=== PATIENT | female | born 1975 | race Asian ===

== ENCOUNTER 2016-11-15 00:26 | Emergency (ER) | payer BC ==
[~2016-11-15] VITALS: Ht 157.5 cm; Wt 103.9 kg
[~2016-11-15 00:26] MED LIST: BCPILLS PO; GABA-112 PO
[2016-11-15 00:27] VITALS: TEMP 36.7; Ht 157.5 cm; Wt 103.9 kg
[2016-11-15] MEDS ORDERED: EpINEphrine INJ 1MG/ML AMP 1 MG/ML AMP ONE (00:37)
[2016-11-15] MEDS ORDERED: DiphenhydrAMINE HCL 50 MG/ML VIAL IV STA (00:38)
[2016-11-15] MEDS ORDERED: FAMOTIDINE 20MG/102 ML D5W IV STA (00:38)
[2016-11-15] MEDS ORDERED: SODIUM CHLORIDE 0.9% 1000ML 1,000 ML IV STA (00:38)
[2016-11-15] MEDS ORDERED: SODIUM CHLORIDE 0.9% 500ML 500 ML IV STA (00:38)
[2016-11-15] MEDS ORDERED: METHYLPREDNISOLONE 125 MG VIAL IV STA (00:38)
--- NOTE | 2016-11-15 00:46 | EMERGENCY ROOM VISIT NOTE ---
History Report prepared by Eduardoibvandana: Dahiana Arguello Under the Supervision of: Dr. Kaylie La D.O. 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 Denies difficulty breathing at present time. History of Present Illness The patient is a 41 year old female who presents to the Emergency Room with complaints of a persistent allergic reaction that began thirty minutes prior to arrival. She currently rates her discomfort as a 3/10 in severity. The patient states that she just started taking Gabapentin three days ago for pain management. She states that today she noticed congestion so she started taking Mucinex DM. The patient denies ever taking Mucinex DM in the past, but states that she has taken Mucinex D in the past. She states that thirty minutes ago she started noticing facial swelling and hives. The patient denies any difficulty breathing at this time. She denies any chance of . Source of History: patient Onset: thirty minutes prior to arrival Position: other (global) Symptom Intensity: 3/10 Quality: other (allergic reaction) Timing: other (persistent) Note: Associated Symptoms: facial swelling, hives, congestion Review of Systems See HPI for pertinent positives & negatives. A total of 10 systems reviewed and were otherwise negative. Past Medical & Surgical Medical Problems: (1) Cervical disc herniation Family History Diabetes mellitus Heart disease Hypertension Kidney disease Social History Smoking Status: Never Smoker Alcohol Use: none Marital Status: single Occupation Status: employed Current/Historical Medications Scheduled B-Complex Vitamins (Vitamin B Complex), 1 TAB PO DAILY Control Pills ( Control Pills), 1 TAB PO DAILY Cholecalciferol (Vitamin D3), 2,000 UNIT PO DAILY Gabapentin (Neurontin), 200 MG PO TID Multivitamin (Multivitamin), 1 TAB PO DAILY Scheduled PRN Acetaminophen Tab (Tylenol), 325 MG PO Q4 PRN for Pain or Fever Pseudoephedrine-Guaifenesin (Mucinex D), 1 TAB PO BID PRN for Nasal Congestion Allergies Coded Allergies: No Known Allergies (Unverified , 11/15/16) Physical Exam Vital Signs Date Time Temp Pulse Resp B/P Pulse Ox O2 Delivery O2 Flow Rate FiO2 11/15/16 05:33 100 16 145/95 96 11/15/16 04:20 105 22 147/100 95 Room Air 11/15/16 04:10 101 11/15/16 02:41 115 15 144/96 97 Room Air 11/15/16 01:39 108 23 163/104 95 Room Air 11/15/16 00:48 113 11/15/16 00:45 119 22 161/109 97 Room Air 11/15/16 00:27 94 Room Air 11/15/16 00:27 36.7 122 18 162/114 94 Room Air Physical Exam HEENT: Edema to ears and face. Head - normocephalic and atraumatic Pupils are equal, round, and reactive to light. Extraocular eye muscles are intact, and sclera are anicteric. Nose - moist nasal mucosa without discharge. Mouth - moist buccal mucosa. Uvular edema. Tongue appears normal in size. Oropharynx is nonerythematous and there is no tonsillar exudate noted. Neck: No auscultated stridor. Supple; no JVD, nuchal rigidity, cervical lymphadenopathy, or auscultated bruits. Heart: Tachycardic rate and regular rhythm. There is a normal S1 and S2 with no murmurs, clicks, or gallops appreciated. Lungs: Clear to auscultation bilaterally with no wheezes, rales, or rhonchi. Abdomen: Soft, completely nontender, nondistended, with good bowel sounds. There are no palpable pulsatile masses or hepatosplenomegaly. There is no guarding, rigidity, or rebound noted. Extremities: No evidence of cyanosis, clubbing, or edema. There are easily palpable peripheral pulses. Skin: Diffuse urticaria and erythema. Medical Decision & Procedures Medications Administered Medications (Trade) Dose Ordered Sig/Megan Route Start Time Stop Time Status Last Admin Dose Admin Epinephrine HCl 1 mg 1 mg STK-MED ONCE .ROUTE 11/15/16 00:37 11/15/16 00:40 DC 11/15/16 00:37 0.3 MG Sodium Chloride 500 ml @ 999 mls/hr Q31M STAT IV 11/15/16 00:38 11/15/16 01:08 DC 11/15/16 01:31 999 MLS/HR Sodium Chloride (Nss 1000ml) 1,000 ml @ 250 mls/hr Q4H STAT IV 11/15/16 00:38 11/15/16 04:37 DC 11/15/16 04:08 250 MLS/HR Diphenhydramine HCl (Benadryl Inj) 50 mg NOW STAT IV 11/15/16 00:38 11/15/16 00:41 DC 11/15/16 01:30 50 MG Famotidine (Pepcid 20mg/100 ml) 20 mg ONE STAT IV 11/15/16 00:38 11/15/16 00:41 DC 11/15/16 01:30 20 MG Methylprednisolone Sodium Succinate (Solu-Medrol IV) 125 mg NOW STAT IV 11/15/16 00:38 11/15/16 00:41 DC 11/15/16 01:30 125 MG Diphenhydramine HCl (diphenhydrAMINE 25MG HOME PACK) 1 homepack STK-MED ONCE .ROUTE 11/15/16 05:19 11/15/16 05:22 DC 11/15/16 05:26 1 HOMEPACK Procedure The patient was treated with 1 mg Epinephrine HCl IM; 125 mg Solu-Medrol IV, 20 mg Famotidine IV, Benadryl Inj 50 mg IV, Sodium Chloride 1000 ml @ 250 mls/hr IV , Sodium Chloride 500 ml @ 999 mls/hr IV. She was given a Diphenhydramine HCl 1 homepack. ED Course 0034: Past medical records reviewed. The patient was evaluated in room A10. A complete history and physical exam was performed. 0037: Ordered Epinephrine HCl 0.3mg IM 0038: An IV lock was initiated. Ordered Solu-Medrol IV 125 mg IV, Famotidine 20 mg IV, Benadryl Inj 50 mg IV, Sodium Chloride 1000 ml @ 250 mls/hr IV, Sodium Chloride 500 ml @ 999 mls/hr IV. 0106: I reevaluated the patient and she was less red and still very anxious and just had her IV started. 0155: I reevaluated the patient and she is feeling much better. Her uvula is less edematous and her erythema has subsided. 0338: I reevaluated the patient and she is sound asleep and hemodynamically stable. 0441: I revaluated the patient and she is resting comfortably. I discussed the exam findings with her and I discussed the treatment plan. She verbalized complete understanding and agreement. She is ready to go home. 0519: Ordered Diphenhydramine HCl 1 homepack .route. Medical Decision The patient is a 41 year old female who presents to the ED with allergic reaction. Differential diagnosis includes anaphylaxis, allergic reaction, urticaria, drug rash. The patient presents to the emergency department with a significant allergic reaction including swelling to the uvula, earlobes, and diffuse urticaria. The patient was in no respiratory distress and had no difficulty swallowing. This is believed to be secondary to medications. The patient denies any other oral intake or new foods She has never had allergy like this before. The patient had recently taking gabapentin and Mucinex DM. Have encouraged her to avoid those medications in the future. She can continue to use Benadryl for additional allergic symptoms. If she develops worsening symptoms, she should return to the emergency department immediately. She will follow up with pain management with regards to alternative medications for gabapentin. Impression Primary Impression: Allergic reaction Critical Care I have personally spent greater than 60 minutes of critical care time in the direct management of this patient. This includes bedside care, interpretation of diagnostic studies, and testing, discussion with consultants, patient, and family members, and other required patient management activities. This 60 minutes is in excess of all separately billable procedures. Scribe Attestation The scribe's documentation has been prepared under my direction and personally reviewed by me in its entirety. I confirm that the note above accurately reflects all work, treatment, procedures, and medical decision making performed by me. Departure Information Dispostion Home / Self-Care Referrals Suri Culp D.O. (PCP) Forms HOME CARE DOCUMENTATION FORM, IMPORTANT VISIT INFORMATION Patient Instructions ED Drug React Allergic, My [facility] Additional Instructions Rest You may continue to take benadryl - 50mg every 6 hours for continued rash. Stop the gabapentin and mucinex DM Follow up with pain management about meds
[2016-11-15] MEDS ORDERED: MULT-506 PO (01:56)
[2016-11-15] MEDS ORDERED: CHOL2000 PO (01:56)
[2016-11-15] MEDS ORDERED: B-CO1CAP17 PO (01:56)
[2016-11-15] MEDS ORDERED: B-COTAB18 PO (01:57)
[2016-11-15] MEDS ORDERED: ACET325T96 PO (01:58)
[2016-11-15] MEDS ORDERED: PSEU60TA80 PO (01:58)
[2016-11-15] MEDS ORDERED: BENADRYL HOME PACK 25 MG TAB ONE (05:19)
[2016-11-15 05:33] VITALS: BP 145/95; PULSE 100; O2SAT 96
== END 2016-11-15 05:34 | disposition home or self-care (01) ==
LOC: C.EDB 00:27 → C.EDA 05:34
DX: T43.8X5A Adverse effect of other psychotropic drugs, initial encounter (principal); X58.XXXA Exposure to other specified factors, initial encounter; Z83.3 Family history of diabetes mellitus; Z82.49 Family history of ischemic heart disease and other diseases of the circulatory system; Z84.1 Family history of disorders of kidney and ureter; Z79.3 Long term (current) use of hormonal contraceptives

== ENCOUNTER → 2017-04-05 | Outpatient (CLI) | payer BC ==
[~2017-04-05] MED LIST changes: +ACET325T96 PO; +B-COTAB18 PO; +CHOL2000 PO; +MULT-506 PO; +PRED50TA PO; +PSEU60TA80 PO
== END | disposition home or self-care (01) ==
LOC: C.RDSM 12:30
PROVIDERS: ATTEND Orthopaedic Surgery Sports Medicine
DX: R52 Pain, unspecified (principal)

== ENCOUNTER → 2017-04-13 | Outpatient (CLI) | payer BC ==
--- NOTE | 2017-04-13 12:18 | DIAGNOSTIC IMAGING REPORT ---
POST ARTHROGRAM MRI THE RIGHT SHOULDER CLINICAL HISTORY: Right shoulder pain and weakness status post neck surgery. COMPARISON STUDY: Conventional radiographic study dated 04/05/2017 FINDINGS: Imaging was performed the sagittal, coronal, and axial planes. The bicipital tendon appears normal. There are no areas of marrow edema to indicate occult fracture or bone bruise. There is a tiny subcortical cyst within the humeral head. There is no evidence of rotator cuff tear. No labral tears are visualized. There is no evidence of pathologic muscular atrophy IMPRESSION: 1. No evidence of rotator cuff tear 2. No evidence of bicipital tendon tear 3. No evidence of labral tear Electronically signed by: Allen Bond M.D. 04/13/2017 12:16 PM Dictated Date/Time: 04/13/2017 12:13 PM
--- NOTE | 2017-04-13 12:18 | Discharge Instructions ---
Discharge Instructions Procedure Procedure Date: Apr 13, 2017. Reason for visit: Shoulder Weakness. Discharge Discharge Date: Apr 13, 2017. Discharge Diagnosis: Right shoulder pain. Status post shoulder arthrogram for MRI. Instructions Activity Recommendations: No limitations Return to School/Work: no limitations Recommended Home Diet: No Limitations Allergies Coded Allergies: No Known Allergies (Unverified , 11/15/16) Mamadou Grissom Recommendations: Call your doctor if: * Temperature above 101 degrees * Pain not relieved by pain medicine ordered * There is increased drainage or redness from any incision * You have any unanswered questions or concerns. Your Doctors Instructions noted above were prepared by provider Aiden Noguera. Patient Signature Section: Patient Instructions Signature Page Stefanie Alarcon Patient (or Guardian) Signature/Date: I have read and understand the instructions given to me by my caregivers. Caregiver/RN/Doctor Signature/Date: The above-named patient and/or guardian has received patient instructions on this date. + Original Patient Signature Page (only) stays with chart. Please make copy for patient.
--- NOTE | 2017-04-13 12:18 | DIAGNOSTIC IMAGING REPORT ---
RIGHT INJECTION SHOULDER PRE MRI FLUOROSCOPY TIME: 32 seconds. 1 frontal spot fluoroscopic image was submitted. HISTORY: 41-year-old female presents with chronic right shoulder pain. PROCEDURE: After obtaining written informed consent, the patient was placed supine on the fluoroscopy table. A suitable site for needle insertion was marked using fluoroscopic guidance. The right shoulder was prepped and draped in the usual sterile fashion. 1% lidocaine was used for skin, subcutaneous and deep soft tissue anesthesia. Under intermittent fluoroscopic guidance, a 22 gauge 2.5 inch spinal needle was inserted into the right glenohumeral joint. A total of 14 cc of one-to-one mixture of dilute Magnevist (0.1 cc in 10 cc saline) and Optiray 300 were injected. The needle was then removed. There were no apparent complications. The patient was transported to for further imaging. IMPRESSION: Fluoroscopic-guided right shoulder arthrogram without immediate complication. Total injected volume was 14 cc. MR portion of the examination will be dictated separately. The above report was generated using voice recognition software. It may contain grammatical, syntax or spelling errors. Electronically signed by: Abraham Noguera M.D. 04/13/2017 12:16 PM Dictated Date/Time: 04/13/2017 12:15 PM
== END | disposition home or self-care (01) ==
LOC: C.MRIBC 10:46
PROVIDERS: ATTEND Orthopaedic Surgery Sports Medicine
DX: M62.81 Muscle weakness (generalized) (principal); M25.511 Pain in right shoulder

== ENCOUNTER 2017-06-15 04:19 | Emergency (ER) | payer BC ==
[~2017-06-15 04:19] MED LIST changes: -PRED50TA PO
[2017-06-15] MEDS ORDERED: RANITIDINE HCL 50 MG/100 ML D5W IV STA (04:27)
[2017-06-15] MEDS ORDERED: DEXAMETHASONE SOD INJ 10 MG/ML VIAL IV ONE (04:30)
[2017-06-15 04:37] VITALS: TEMP 36.6; Ht 157.5 cm
[2017-06-15] MEDS ORDERED: EPINEPHRINE ADULT AUTO-INJECT 0.3 MG SYR IM STA (05:07)
--- NOTE | 2017-06-15 05:07 | EMERGENCY ROOM VISIT NOTE ---
History First contact with patient: 04:24 Chief Complaint: ALLERGIC REACTION Stated Complaint: SWELLING EYES,NOSE,HANDS,ALLERGIC REACTION Nursing Triage Summary: Pt reports eating something from [employer] last night. Pt woke up around midnight with rash, itching, and swelling to ears. History of Present Illness The patient is a 41 year old female who presents to the Emergency Room with complaints of allergic reaction for the past few hours. Patient states she woke up with itching and rash tonight. Patient states last night for dinner she had [place] food that was many hours ago. Patient denies chest pain, throat tightness, abdominal pain, vomiting, diarrhea. No facial swelling. Patient took Benadryl at 2:30 AM. She's had an allergic reaction similar to this in the past that was worse though. 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 No new foods soaps or detergents. Review of Systems See HPI for pertinent positives & negatives. A total of 10 systems reviewed and were otherwise negative. Past Medical/Surgical History Medical Problems: (1) Cervical disc herniation Family History Diabetes mellitus Heart disease Hypertension Kidney disease Social History Smoking Status: Never Smoker Alcohol Use: none Marital Status: single Occupation Status: employed Current/Historical Medications Scheduled B-Complex Vitamins (Vitamin B Complex), 1 TAB PO DAILY Control Pills ( Control Pills), 1 TAB PO DAILY Cholecalciferol (Vitamin D3), 2,000 UNIT PO DAILY Gabapentin (Neurontin), 200 MG PO TID Multivitamin (Multivitamin), 1 TAB PO DAILY Scheduled PRN Acetaminophen Tab (Tylenol), 325 MG PO Q4 PRN for Pain or Fever Pseudoephedrine-Guaifenesin (Mucinex D), 1 TAB PO BID PRN for Nasal Congestion Physical Exam Vital Signs Date Time Temp Pulse Resp B/P (MAP) Pulse Ox O2 Delivery O2 Flow Rate FiO2 06/15/17 04:41 100 06/15/17 04:37 36.6 90 20 179/111 98 Room Air 06/15/17 04:37 Room Air 06/15/17 04:37 Room Air Physical Exam VITALS: Vitals are noted on the nurse's note and reviewed by myself. Vital signs hypertensive GENERAL: Pleasant anxious-appearing female, in no acute distress, nondiaphoretic , well-developed well-nourished. SKIN: Diffuse erythematous blanchable dermatitis most consistent with allergic reaction The rest of the skin was without rashes, erythema, edema, or bruising. There is no tenting of the skin. Capillary reflex less than 2 seconds. HEAD: Normocephalic atraumatic. No facial edema EARS: External auditory canals clear, tympanic membranes pearly drummond without erythema or effusion bilaterally. EYES: Pupils equal round and reactive to light and accommodation. Conjunctivae without injection, sclerae without icterus. Extraocular movements intact. NOSE: Patent, turbinates without inflammation or discharge. MOUTH: Mucous membranes moist. Pharynx without erythema or exudate. Uvula midline. Airway patent. Tongue does not deviate. No airway compromise NECK: Supple without nuchal rigidity. No lymphadenopathy. No thyromegaly. Cervical spine is nontender. No JVD. HEART: Regular rate and rhythm without murmurs gallops or rubs. LUNGS: Clear to auscultation bilaterally without wheezes, rales or rhonchi. No dullness to percussion. No retractions or accessory muscle use. ABDOMEN: Positive bowel sounds x 4. Normal tympanic percussion. Soft, nontender, without masses or organomegaly. Otto sign negative. No guarding or rebound tenderness. MUSCULOSKELETAL: No muscle atrophy, erythema, or edema noted. NEURO: Patient was alert and oriented to person place and time. Normal sensation to light and sharp touch. No focal neurological deficits. Medical Decision & Procedures Medications Administered Medications (Trade) Dose Ordered Sig/Megan Route Start Time Stop Time Status Last Admin Dose Admin Dexamethasone Sodium Phosphate (Decadron Inj) 10 mg NOW ONCE IV 06/15/17 04:30 06/15/17 04:31 DC 06/15/17 04:42 10 MG Ranitidine HCl (zANTac IV) 50 mg NOW STAT IV 06/15/17 04:27 06/15/17 04:28 DC 06/15/17 04:42 50 MG ED Course Prior records/ancillary studies reviewed. Triage Nursing notes reviewed. The patient's history was concerning for possible allergic reaction. Differential diagnosis: Etiologies such as allergic reaction, anaphylaxis, urticaria, Sanford-Bacilio syndrome, toxic epidermal necrolysis, erythema multiforme, cellulitis, as well as others were entertained. Physical examination: As above. ER treatment provided: Continuous cardiac monitoring Zantac 50 mg IV Decadron 10 mg IV On reassessment the patient felt better. Diagnostic interpretation by me: Deferred It appears the patient had an allergic reaction. The above treatment did well to reverse the symptoms. After prolonged monitoring and frequent reassessments the patient did very well and symptoms resolved. The patient was counseled on the spectrum of this disease process and told to avoid potential triggers. I gave my usual and customary discussion regarding this issue. Patient was advised to follow-up with the veneer jointer operator and family care doctor. By the evaluation outlined above emergent etiologies such as recurring anaphylaxis, anaphylatic shock, airway compromise, Sanford-Bacilio syndrome, toxic epidermal necrolysis, erythema multiforme, infectious etiologies, as well as others were deemed relatively unlikely. The pt informed about the findings as listed above. All questions were answered and pleased with the treatment. Return instructions were outlined and the patient was discharged in stable condition. Outpatient prescription management: EpiPen prednisone Referral: The patient was referred back to primary care physician for follow-up in 2-3 days for a recheck of the current condition. or The patient was referred to Allergy/Immunology for further evaluation. Medical Decision As above Blood Pressure Screening Patient's blood pressure: Elevated blood pressure Blood pressure disposition: Elevated BP felt to be situational Impression Primary Impression: Allergic reaction Departure Information Dispostion Home / Self-Care Condition GOOD Referrals Suri Culp D.O. (PCP) Patient Instructions My [facility] Additional Instructions DO NOT drive, drink alcohol, operate machinery, or perform dangerous activities today. You were given medications in the ER that can affect your ability to safely function or operate a vehicle. Epi-Pen: Use one injection as instructed for severe allergic reactions associated with shortness of breath, difficulty breathing, or throat or tongue swelling. If you use this injection call 911 or proceed immediately to the nearest Emergency Room. Prednisone 50mg: Once daily until the prescription is finished. It is best to take this earlier in the day as some patients note occasional difficulty falling asleep when taken in the late evening. Diphenhydramine(Benadryl) 25mg: use 25 to 50 mg every six hours for swelling, itching, or hives. This medication is sedating and will cause drowsiness. Avoid alcohol, operating machinery or dangerous equipment, working on ladders or roofs, DRIVING, or situations where being under the influence may be dangerous. Zantac 75: Take two pills twice a day along with Benadryl as needed for swelling , itching, or hives. Most people know this for its affect on the stomach, but it also acts similar to, but less potent than Benadryl for allergic reactions. Both the Benadryl and the Zantac are available [id number]. Continue current medications. Return to the emergency department for worsening of your rash, swelling of your face, lips, tongue, or throat, difficulty breathing, vomiting, or as needed. Follow-up with your primary care physician and/or veneer jointer operator in 2 to 3 days for a recheck of your current condition. Problem Qualifiers Primary Impression: Allergic reaction Encounter type: initial encounter Qualified Codes: T78.40XA - Allergy, unspecified, initial encounter
[2017-06-15] MEDS ORDERED: PRED50TA PO (05:08)
[2017-06-15 05:24] VITALS: BP 145/99; PULSE 84; O2SAT 97
== END 2017-06-15 05:27 | disposition home or self-care (01) ==
LOC: C.EDB 04:20
DX: T78.40XA Allergy, unspecified, initial encounter (principal); X58.XXXA Exposure to other specified factors, initial encounter; M50.20 Other cervical disc displacement, unspecified cervical region; Z83.3 Family history of diabetes mellitus; Z82.49 Family history of ischemic heart disease and other diseases of the circulatory system; Z84.1 Family history of disorders of kidney and ureter; Z79.3 Long term (current) use of hormonal contraceptives; Z79.899 Other long term (current) drug therapy